=== PATIENT | female | born 1995 | race Caucasian/White ===

== ENCOUNTER 2017-05-16 23:10 | Observation (INO) | payer SELFPAY ==
[2015-09-26 19:05] VITALS: BMI 20.5
[2017-05-16 23:17] VITALS: BP 103/74; PULSE 81; RESP 16; TEMP 97.7; O2SAT 100
[2017-05-17] MEDS ORDERED: Iohexol 240 (50 ml) PO STA (00:03)
[2017-05-17] MEDS ORDERED: Sodium Chloride 0.9% 1,000 ML IV STA (00:04)
--- NOTE | 2017-05-17 00:07 | ED PDOC ---
"HPI: Abdomen Time Seen by Provider: 05/17/17 00:05 Chief Complaint (Nursing): Abdominal Pain Chief Complaint (Provider): abdominal pain History Per: Patient (21 y/o female here h/o UC here with rlq x 3 days. Notes worsening symptoms with coughing. Denies any fevers/chills/dysuria/vomiting/ diarrhea/hematochezia.) Past Medical History Reviewed: Historical Data, Nursing Documentation, Vital Signs Vital Signs: Last Vital Signs Temp 97.7 F 05/16/17 23:16 Pulse 81 05/16/17 23:16 Resp 16 05/16/17 23:16 BP 103/74 05/16/17 23:16 Pulse Ox 100 05/17/17 05:28 - Medical History PMH: Anemia, Anxiety Denies: Chronic Kidney Disease - Family History Family History: States: Unknown Family Hx - Immunization History Hx Tetanus Toxoid Vaccination: No Hx Influenza Vaccination: No Hx Pneumococcal Vaccination: No - Home Medications Home Medications: Ambulatory Orders Medication Instructions Recorded Albuterol HFA [Ventolin HFA 90 1 puff IH BID PRN #1 unit 06/02/16 mcg/actuation (8 g)] Fexofenadine/Pseudoephedrine 1 each PO BID PRN #12 tab.er.12h 06/02/16 [Carmelita-D 12 Hour Tablet] Folic Acid [Folic Acid] 10 mg PO DAILY 06/02/16 Ciprofloxacin HCl [Cipro] 500 mg PO BID #14 tablet 05/17/17 Docusate Sodium [Colace] 100 mg PO Q12 PRN #20 capsule 05/17/17 Naproxen [Naprosyn Tab] 375 mg PO Q8 PRN #21 tab 05/17/17 Phenazopyridine HCl [Pyridium] 100 mg PO BID PRN #6 tablet 05/17/17 - Allergies Allergies/Adverse Reactions: Allergies Allergy/AdvReac Type Severity Reaction Status Date / Time No Known Allergies Allergy Verified 06/02/16 11:29 Review of Systems ROS Statement: Except As Marked, All Systems Reviewed And Found Negative Gastrointestinal: Positive for: Abdominal Pain Physical Exam - Reviewed Nursing Documentation Reviewed: Yes Vital Signs Reviewed: Yes - Physical Exam Appears: Positive for: Well, Non-toxic, No Acute Distress Head Exam: Positive for: ATRAUMATIC, NORMAL INSPECTION, NORMOCEPHALIC Skin: Positive for: Normal Color, Warm, DRY Eye Exam: Positive for: EOMI, Normal appearance, PERRL ENT: Positive for: Normal ENT Inspection Neck: Positive for: Normal, Painless ROM Cardiovascular/Chest: Positive for: Regular Rate, Rhythm Respiratory: Positive for: CNT, Normal Breath Sounds Gastrointestinal/Abdominal: Positive for: Normal Exam, Bowel Sounds, Soft, Tenderness (right lower quadrant lateral to umbilicus.) Back: Positive for: Normal Inspection Extremity: Positive for: Normal ROM Neurologic/Psych: Positive for: Alert, Oriented - Laboratory Results Result Diagrams: 05/17/17 00:50 05/17/17 00:50 - ECG O2 Sat by Pulse Oximetry: 100 ED OBSERVATION Date of observation admission: 05/17/17 Time of observation admission: 00:15 - Observation admission statement Patient is being placed in observation because:: ABDOMINAL PAIN/ EVALUATION AND DIAGNOSIS OF ABDOMINAL PAIN - Goals of Observation Goals of observation are:: EVALUATE FOR APPENDICIITS - Progress Note Progress Note: 05/17/17 00:33 MOPRHINE 1 MG IV X 1 DOSE ZOFRAN 4 MG I VX [address] ABD/PELVIS ROCEPHIN 1 GM IV X 1 DOSE MORPHINE 1 MG IV X 2ND DOSE 05/17/17 05:27 CT ABD/PELVIS FINDINGS: Lower thorax: There is bibasilar atelectasis. Minimal pericardial effusion. ABDOMEN: Liver: Unremarkable. Gallbladder and bile ducts: Partially contracted gallbladder with mild intrahepatic biliary ductal prominence unchanged from prior examination. Pancreas: Unremarkable. No mass. No ductal dilation. Spleen: Unremarkable. No splenomegaly. Adrenals: Unremarkable. No mass. Kidneys and ureters: Unremarkable. No solid mass. No hydronephrosis. Stomach and bowel: Large amount of stool in the colon. Nonspecific colonic wall thickening. Correlation with patient's clinical history of constipation versus stool related colitis is recommended. Appendix: Normal appendix. PELVIS: ALFREDO PEREZ | Preliminary Radiology Report SHUTTLELESS [employer]AVER (QA) DISCREPANCY? If there is a discrepancy between the preliminary and final interpretation, please notify [facility] via [email or web address]. If you do not have access to our QA portal, call our QA team at [phone] CONFIDENTIALITY STATEMENT This report is intended only for the use of the referring physician, and only in accordance with law, If you received this in error, call [phone] Page 2 of 2 Bladder: Partially distended bladder with bladder wall thickening. Correlation with urinalysis is recommended only if clinical cystitis is suspected. Reproductive: Retroverted uterus. ABDOMEN and PELVIS: Intraperitoneal space: Unremarkable. No free air. No significant fluid collection. Bones/joints: No acute fracture. No dislocation. Mild left-sided scoliosis. Soft tissues: Umbilical body piercing ring. Vasculature: Unremarkable. No abdominal aortic aneurysm. Lymph nodes: Multiple subcentimeter mesenteric and ileocolic lymph nodes. Findings are nonspecific but may represent mesenteric adenitis. IMPRESSION: 1. Large amount of stool in the colon. Nonspecific colonic wall thickening. Correlation with patient's clinical history of constipation versus stool related colitis is recommended. Thank you for allowing us to participate in the care of your patient. Disposition - Clinical Impression Clinical Impression: Pyelonephritis, Constipation - Patient ED Disposition Is Patient to be Admitted: No - Disposition Disposition: Routine/Home Disposition Time: 05:28 Condition: FAIR"
[2017-05-17 01:23] LABS: BASO % 0.7 % (0.0-2.0); EOS # 0.7 K/uL (0.0-0.7); EOS % 10.4 % (0.0-4.0); HEMATOCRIT 35.8 % (34.0-47.0); LYMPH % 31.8 % (20.0-40.0); MEAN CELL VOLUME 78.1 fl (81.0-99.0); MEAN PLATELET VOLUME 8.2 fl (7.2-11.7); MONO # 0.7 K/uL (0.0-0.8); MONO % 10.8 % (0.0-10.0); NEUT % 46.3 % (50.0-75.0); RED CELL DISTRIBUTION WIDTH 16.8 % (11.5-14.5); WHITE BLOOD COUNT 6.4 K/uL (4.8-10.8)
[2017-05-17] MEDS ORDERED: Iohexol 240 (50 ml) ONE (01:24)
[2017-05-17 01:31] LABS: ALB/GLOB RATIO 1.2 (1.0-2.1); ALKALINE PHOSPHATASE 110 U/L (38-126); ALT/SGPT 28 U/L (9-52); AST/SGOT 27 U/L (14-36); BILIRUBIN,TOTAL 0.3 mg/dl (0.2-1.3); BLOOD UREA NITROGEN 14 mg/dl (7-17); CALCIUM 9.5 mg/dL (8.4-10.2); CARBON DIOXIDE 22 mmol/L (22-30); CHLORIDE 106 mmol/L (98-107); GFR AFRICAN-AMERICAN > 60; GLUCOSE,RANDOM 108 mg/dL (65-105); LIPASE 108 U/L (23-300); POTASSIUM 3.7 MMOL/L (3.6-5.0); SODIUM 142 mmol/l (132-148); TOTAL PROTEIN 7.6 G/DL (6.3-8.2)
[2017-05-17 02:12] LABS: RBC URINE 11 /hpf (0-3); URINE BACTERIA OCC (<OCC); URINE BILIRUBIN NEGATIVE (NEGATIVE); URINE BLOOD SMALL (NEGATIVE); URINE COLOR YELLOW (YELLOW); URINE GLUCOSE (UA) NEG (Normal); URINE KETONE NEGATIVE (NEGATIVE); URINE LEUKOCYTE ESTERASE NEG Leu/uL (Negative); URINE PROTEIN NEGATIVE (NEGATIVE); URINE UROBILINOGEN 0.2-1.0 mg/dL (0.2-1.0); WBC CLUMPS MANY /hpf; WBC URINE 22 /hpf (0-5)
[2017-05-17] MEDS ORDERED: Sodium Chloride 0.9% 50 ML IV ONE (03:26)
[2017-05-17] MEDS ORDERED: Iohexol 300 100 ML IJ ONE (03:26)
[2017-05-17] MEDS ORDERED: cefTRIAXone (Rocephin) 1 gm Inj IVPB ONE (04:08)
--- NOTE | 2017-05-17 10:24 | CT ---
PROCEDURE: CT Abdomen and Pelvis with contrast HISTORY: abd pain rlq COMPARISON: Comparison is made to the previous study dated 05/17/2012 TECHNIQUE: Contrast dose: 85 cc of Omnipaque 300. Axial and reformatted coronal and sagittal CT images of the abdomen and pelvis were obtained after IV and oral contrast administration. Radiation dose: Total exam DLP = 258.84 mGy-cm. This CT exam was performed using one or more of the following dose reduction techniques: Automated exposure control, adjustment of the mA and/or kV according to patient size, and/or use of iterative reconstruction technique. FINDINGS: LOWER THORAX: Unremarkable. LIVER: Unremarkable. No gross lesion or ductal dilatation. GALLBLADDER AND BILE DUCTS: Unremarkable. PANCREAS: Unremarkable. No gross lesion or ductal dilatation. SPLEEN: Unremarkable. ADRENALS: Unremarkable. No mass. KIDNEYS AND URETERS: Unremarkable. No hydronephrosis. No solid mass. VASCULATURE: Unremarkable. No aortic aneurysm. BOWEL: [id number] constipation. Mild diffuse small bowel wall thickening. No evidence of bowel obstruction. Mild distal gastric wall thickening. APPENDIX: Normal appendix. PERITONEUM: Unremarkable. No free fluid. No free air. LYMPH NODES: Unremarkable. No enlarged lymph nodes. BLADDER: Unremarkable. REPRODUCTIVE: The adnexa are prominent in size bilaterally. The uterus is slightly prominent in size. BONES: No acute fracture. OTHER FINDINGS: None. IMPRESSION: No evidence of appendicitis. [id number] constipation. Mild small bowel wall thickening. Prominent size/ mildly enlarged adnexa. Otherwise no evidence of acute pathology in the abdomen and pelvis. Preliminary report was submitted by [facility].
== END 2017-05-17 05:28 | disposition home or self-care (01) ==
LOC: H.ER 23:10 → H.EROBSV 05-17 00:15
PROVIDERS: ADMIT Emergency Medicine; ATTEND Emergency Medicine
DX: N12 Tubulo-interstitial nephritis, not specified as acute or chronic (principal); K59.00 Constipation, unspecified; D64.9 Anemia, unspecified; F41.9 Anxiety disorder, unspecified
CPT/HCPCS: 36415; 74177; 80053; 81003; 83690; 85025; 87086; 96361; 96374; 96375; 96376; 99283; G0378; J0696; J2270; J2405; J7040; Q9966; Q9967

== ENCOUNTER 2018-04-08 12:13 | Emergency (ER) | payer MEDICAID, OTHER ==
[2015-09-26 19:05] VITALS: BMI 20.5
[2018-04-08] MEDS ORDERED: Albuterol-Ipratrop 3 mg / 0.5 (3 ml) UD IH STA ×2 (12:39→15:22)
--- NOTE | 2018-04-08 12:42 | ED PDOC ---
HPI: CCC, URI, Sore Throat Time Seen by Provider: 04/08/18 12:16 Chief Complaint (Nursing): Cough, Cold, Congestion History Per: Patient Onset/Duration Of Symptoms: Days (3) Current Symptoms Are (Timing): Still Present Location Of Pain: Headache Associated Symptoms: Sore Throat, Cough, Sputum. denies: Vomiting, Diarrhea Severity: Moderate Pain Scale Rating Of: 3 Additional Complaint(s): Cough productive white green sputum assoc with wheezing and SOB. Denies fever. Decreased apatite. No vomiting or diarrhea. denies bloody stool. Past Medical History Vital Signs: Last Vital Signs Temp 98.9 F 04/08/18 14:03 Pulse 107 H 04/08/18 14:03 Resp 18 04/08/18 14:03 BP 102/68 04/08/18 14:03 Pulse Ox 98 04/08/18 14:03 - Medical History PMH: Anemia, Anxiety Denies: Chronic Kidney Disease Other PMH: Ulcerative colitis - Family History Family History: States: Unknown Family Hx - Immunization History Hx Tetanus Toxoid Vaccination: No Hx Influenza Vaccination: No Hx Pneumococcal Vaccination: No - Home Medications Home Medications: Ambulatory Orders Medication Instructions Recorded Albuterol HFA [Ventolin HFA 90 1 puff IH BID PRN #1 unit 06/02/16 mcg/actuation (8 g)] Fexofenadine/Pseudoephedrine 1 each PO BID PRN #12 tab.er.12h 06/02/16 [Carmelita-D 12 Hour Tablet] Folic Acid [Folic Acid] 10 mg PO DAILY 06/02/16 Ciprofloxacin HCl [Cipro] 500 mg PO BID #14 tablet 05/17/17 Docusate Sodium [Colace] 100 mg PO Q12 PRN #20 capsule 05/17/17 Naproxen [Naprosyn Tab] 375 mg PO Q8 PRN #21 tab 05/17/17 Phenazopyridine HCl [Pyridium] 100 mg PO BID PRN #6 tablet 05/17/17 Albuterol HFA [Ventolin HFA 90 2 puff IH Q4H #1 puff 04/08/18 mcg/actuation (8 g)] Azithromycin [Zithromax] 250 mg PO DAILY #6 tab 04/08/18 - Allergies Allergies/Adverse Reactions: Allergies Allergy/AdvReac Type Severity Reaction Status Date / Time No Known Allergies Allergy Verified 04/08/18 12:29 Review of Systems ROS Statement: Except As Marked, All Systems Reviewed And Found Negative Respiratory: Positive for: Cough, Sputum, Wheezing Physical Exam - Reviewed Nursing Documentation Reviewed: Yes Vital Signs Reviewed: Yes - Physical Exam Appears: Positive for: Non-toxic, No Acute Distress Head Exam: Positive for: ATRAUMATIC, NORMAL INSPECTION, NORMOCEPHALIC Skin: Positive for: Normal Color, Warm, DRY Eye Exam: Positive for: EOMI, Normal appearance, PERRL ENT: Positive for: Normal ENT Inspection Neck: Positive for: Normal, Painless ROM Cardiovascular/Chest: Positive for: Regular Rate, Rhythm Respiratory: Positive for: Rhonchi, Wheezing. Negative for: Respiratory Distress Gastrointestinal/Abdominal: Positive for: Soft. Negative for: Tenderness Back: Positive for: Normal Inspection Extremity: Positive for: Normal ROM Neurologic/Psych: Positive for: Alert, Oriented - Laboratory Results Result Diagrams: 04/08/18 14:40 - ECG O2 Sat by Pulse Oximetry: 99 Disposition - Clinical Impression Clinical Impression: Pneumonia - Patient ED Disposition Is Patient to be Admitted: No Counseled Patient/Family Regarding: Studies Performed, Diagnosis, Need For Followup, Rx Given - Disposition Referrals: [facility] [Outside] Disposition: Routine/Home Disposition Time: 15:21 Condition: FAIR Prescriptions: Albuterol HFA [Ventolin HFA 90 mcg/actuation (8 g)] 2 puff IH Q4H #1 puff Azithromycin [Zithromax] 250 mg PO DAILY #6 tab Instructions: Pneumonia in Adults Forms: [facility] (Hungarian)
[2018-04-08] MEDS ORDERED: Albuterol-Ipratrop 3 mg / 0.5 (3 ml) UD ONE ×2 (12:51→15:29)
--- NOTE | 2018-04-08 13:53 | RAD ---
Date of service: 04/08/2018 HISTORY: cough COMPARISON: 06/02/2016 TECHNIQUE: Chest PA and lateral FINDINGS: LUNGS: There is interval vague opacity compatible with a small patchy interval infiltrate in the right mid lung zone. There is also interval increased branching bandlike opacities right infrahilar region subsegmental atelectasis and or subsegmental infiltrate here region right middle lobe compatible with this appearance there is also equivocal opacity projecting over the right upper lung zone this also however projects over the anterior right 2nd rib and the right posterior 5th rib. Summation shadows versus another patchy small infiltrate here is a consideration. PLEURA: No significant pleural effusion identified. No pneumothorax apparent. CARDIOVASCULAR: Normal. OSSEOUS STRUCTURES: No significant abnormalities. VISUALIZED UPPER ABDOMEN: Normal. OTHER FINDINGS: Bilateral nipple appears pieces of jewelry present as before. IMPRESSION: Interval faint small patchy infiltrates right lung - as detailed above . Clinical follow-up recommended.
[2018-04-08 15:00] LABS: BASO # 0.1 K/uL (0.0-0.2); BASO % 0.7 % (0.0-2.0); EOS # 0.5 K/uL (0.0-0.7); EOS % 5.9 % (0.0-4.0); HEMOGLOBIN 13.6 g/dL (12.0-16.0); LYMPH # 1.5 K/uL (1.0-4.3); LYMPH % 17.3 % (20.0-40.0); MEAN CORPUSCULAR HEMOGLOBIN 26.8 pg (27.0-31.0); MEAN CORPUSCULAR HGB CONC 33.5 g/dL (33.0-37.0); MEAN PLATELET VOLUME 8.3 fl (7.2-11.7); MONO # 0.7 K/uL (0.0-0.8); MONO % 8.4 % (0.0-10.0); NEUT # 5.9 K/uL (1.8-7.0); NEUT % 67.7 % (50.0-75.0); RBC 5.08 Mil/uL (3.80-5.20); RED CELL DISTRIBUTION WIDTH 15.5 % (11.5-14.5); WHITE BLOOD COUNT 8.7 K/uL (4.8-10.8)
[2018-04-08 15:22] VITALS: O2SAT 99
[2018-04-08 15:55] LABS: ALB/GLOB RATIO 1.1 (1.0-2.1); ALBUMIN 4.6 g/dL (3.5-5.0); ALT/SGPT 21 U/L (9-52); AST/SGOT 29 U/L (14-36); BLOOD UREA NITROGEN 9 mg/dl (7-17); CALCIUM 9.6 mg/dL (8.4-10.2); GFR NON-AFRICAN AMERICAN > 60
[2018-04-08 16:17] VITALS: BP 109/60; PULSE 86; RESP 16; TEMP 99.1
== END 2018-04-08 16:27 | disposition home or self-care (01) ==
LOC: H.ER 12:13
DX: J18.9 Pneumonia, unspecified organism (principal); F41.9 Anxiety disorder, unspecified

== ENCOUNTER 2018-12-07 11:34 | Emergency (ER) | payer MEDICAID ==
[2015-09-26 19:05] VITALS: BMI 20.5
[2018-12-07 11:42] VITALS: O2SAT 100
[2018-12-07] MEDS ORDERED: Tetanus Immune Globulin 250 Units Inj IM STA (12:03)
[2018-12-07] MEDS ORDERED: Tdap Vaccine 0.5 ml Vial (10-64 yrs) IM ONE ×2 (12:08→12:27)
[2018-12-07] MEDS ORDERED: Amoxicillin-Clav 875-125 mg Tab PO STA (12:25)
[2018-12-07] MEDS ORDERED: Amoxicillin-Clav 875-125 mg Tab PO ONE (12:38)
--- NOTE | 2018-12-07 13:07 | ED PDOC ---
HPI: Skin/Bite Injury Time Seen by Provider: 12/07/18 12:04 Chief Complaint (Nursing): Bite Chief Complaint (Provider): dog bite History Per: Patient History/Exam Limitations: no limitations Onset/Duration Of Symptoms: Hrs Current Symptoms Are (Timing): Still Present Location Of Injury: Left: Leg (x2 doses ) Quality Of Symptoms: Painful, Swollen Severity: Mild Pain Scale Rating Of: 5 Additional History Per: Patient Additional Complaint(s): 23 YEAR OLD FEMALE PRESENTS TO THE ED AFTER BEIN BIT BY A DOG [place] [employer]. PATIENTS SHE WAS ON THE PHONE WITH HER MOTHER BEING "SILLY" AND SHE STATES THAT MIGHT OF STARTLED THE DOG AND BIT HER THROUGH YOGA PANTS. SHE STATES THE BAR PORTER SAID THE DOG IS A HOUSE DOG AND USUALLY DOES NOT COME OUT THEREFORE IT DID NOT HAVE ANY OF THE VACCINES. PATIENT STATES SHE DID NOT GET THE BAR PORTER'S OR DOG INFORMATION. TETANUS STATUS IS UNKNOWN. - Animal Bite Description Of The Attack: Unprovoked Attack Description Of The Animal: Family Pet Animal Appears: Unknown Animal's Immunization Status: Not Recently Immunized Past Medical History Reviewed: Historical Data, Nursing Documentation, Vital Signs Vital Signs: Last Vital Signs Temp 98.3 F 12/07/18 11:39 Pulse 90 12/07/18 11:39 Resp 17 12/07/18 11:39 BP 106/56 L 12/07/18 12:22 Pulse Ox 100 12/07/18 11:39 QUIN Report Viewed: No - Medical History PMH: Anemia, Anxiety Denies: Chronic Kidney Disease - Family History Family History: States: Unknown Family Hx - Social History Alcohol: None Drugs: Denies - Immunization History Hx Tetanus Toxoid Vaccination: No Hx Influenza Vaccination: No Hx Pneumococcal Vaccination: No - Home Medications Home Medications: Ambulatory Orders Medication Instructions Recorded Albuterol HFA [Ventolin HFA 90 1 puff IH BID PRN #1 unit 06/02/16 mcg/actuation (8 g)] Fexofenadine/Pseudoephedrine 1 each PO BID PRN #12 tab.er.12h 06/02/16 [Carmelita-D 12 Hour Tablet] Folic Acid 10 mg PO DAILY 06/02/16 Ciprofloxacin HCl [Cipro] 500 mg PO BID #14 tablet 05/17/17 Docusate Sodium [Colace] 100 mg PO Q12 PRN #20 capsule 05/17/17 Naproxen [Naprosyn Tab] 375 mg PO Q8 PRN #21 tab 05/17/17 Phenazopyridine HCl [Pyridium] 100 mg PO BID PRN #6 tablet 05/17/17 Albuterol HFA [Ventolin HFA 90 2 puff IH Q4H #1 puff 04/08/18 mcg/actuation (8 g)] Azithromycin [Zithromax] 250 mg PO DAILY #6 tab 04/08/18 Amoxicillin/Clavulanate [Augmentin 1 tab PO Q12H #13 tab 12/07/18 875 MG-125 MG] - Allergies Allergies/Adverse Reactions: Allergies Allergy/AdvReac Type Severity Reaction Status Date / Time No Known Allergies Allergy Verified 04/08/18 12:29 Review of Systems ROS Statement: Except As Marked, All Systems Reviewed And Found Negative Constitutional: Negative for: Fever, Chills, Sweats, Weakness, Malaise Eyes: Negative for: Pain, Vision Change, Conjunctivae Inflammation, Eyelid Inflammation, Redness ENT: Negative for: Ear Pain, Ear Discharge, Nose Pain, Nose Discharge, Nose Congestion, Mouth Pain, Mouth Swelling Skin: Positive for: Bruising, Other (DOG BITES TO LEFT UPPER THIGH ) Physical Exam - Reviewed Nursing Documentation Reviewed: Yes Vital Signs Reviewed: Yes - Physical Exam Appears: Positive for: Well, Non-toxic, No Acute Distress Head Exam: Positive for: ATRAUMATIC, NORMAL INSPECTION, NORMOCEPHALIC Skin: Positive for: Normal Color, Warm (LEFT THIGH BITES: 1.0 CM TENSILE LACERATION X1, 3-4 FINGER BREATHS BELOW FIRST WOUND: 0.5CM IN LENGTH TENSILE WOUND. ECCHYMOSIS NEAR THE LEFT BUTTOCK NOTED, SKIN INTACT IN THIS AREA. ), Dry Eye Exam: Positive for: EOMI, Normal appearance, PERRL ENT: Positive for: Normal ENT Inspection Neck: Positive for: Normal, Painless ROM Cardiovascular/Chest: Positive for: Regular Rate, Rhythm Respiratory: Positive for: CNT, Normal Breath Sounds Gastrointestinal/Abdominal: Positive for: Normal Exam, Soft Back: Positive for: Normal Inspection Extremity: Positive for: Normal ROM Neurological/Psych: Positive for: Awake, Alert, Normal Tone, Oriented - Laboratory Results Urine POC: Negative - ECG O2 Sat by Pulse Oximetry: 100 Medical Decision Making Medical Decision Making: WOUND CARE/REPAIR TETANUS VACCINE RABIES IMMUNOGOBULIN/VACCINE AUGMENTIN FIRST DOSE UPREG 13:00: PATIENT TOLERATED WOUND CARE WELL. WOUNDS CLOSED TO STRII STRIPS TO ALLOW FOR SECONDARY INTENTION HEALING. PATIENT EDUCATED ON MANAGEMENT AND CARE OF WOUNDS AT HOME. 2.8ML OF RABIES IMMUNOGLOBULIN INJECTED TO SITES BY CLASS B DRIVER AFTER APPLYING BETADINE AROUND WOUND AND LEFT TO DRY. 13::19: PATIENT STABLE FOR D/C. PATIENT TO RETURN ON 12/10 FOR WOUND CHECK AND SECOND RABIES VACCINE. PATIENT STATES UNDERSTANDING AND AGREES WITH PLAN. RX GIVEN FOR AUGMENTIN AND MOTRIN. PATIENT GIVEN RETURN TO ED PRECAUTIONS. Disposition - Clinical Impression Clinical Impression: Dog bite - Patient ED Disposition Is Patient to be Admitted: No Counseled Patient/Family Regarding: Diagnosis, Need For Followup, Rx Given - Disposition Disposition: Routine/Home Disposition Time: 13:15 Condition: GOOD Prescriptions: Amoxicillin/Clavulanate [Augmentin 875 MG-125 MG] 1 tab PO Q12H #13 tab Instructions: Animal Bites (DC), Wound Care (DC) Print Language: SERBIAN - POA Present On Arrival: None
[2018-12-07 13:36] VITALS: BP 112/60; PULSE 84; RESP 18; TEMP 98.1
== END 2018-12-07 13:34 | disposition home or self-care (01) ==
LOC: H.ER 11:34
DX: S81.852A Open bite, left lower leg, initial encounter (principal); W54.0XXA Bitten by dog, initial encounter; Z23 Encounter for immunization

== ENCOUNTER 2018-12-10 20:17 | Emergency (ER) | payer MEDICAID ==
[2015-09-26 19:05] VITALS: BMI 20.5
[2018-12-10 21:05] VITALS: BP 106/68; PULSE 68; RESP 16; TEMP 98.4; O2SAT 98
--- NOTE | 2018-12-10 21:08 | ED PDOC ---
HPI: General Adult Time Seen by Provider: 12/10/18 21:05 Chief Complaint (Nursing): Rabies Vaccine Series Past Medical History Vital Signs: Last Vital Signs Temp 98.4 F 12/10/18 21:04 Pulse 68 12/10/18 21:04 Resp 16 12/10/18 21:04 BP 106/68 12/10/18 21:04 Pulse Ox 98 12/10/18 21:04 - Medical History PMH: Anemia, Anxiety Denies: Chronic Kidney Disease - Family History Family History: States: Unknown Family Hx - Immunization History Hx Tetanus Toxoid Vaccination: No Hx Influenza Vaccination: No Hx Pneumococcal Vaccination: No - Home Medications Home Medications: Ambulatory Orders Medication Instructions Recorded Albuterol HFA [Ventolin HFA 90 1 puff IH BID PRN #1 unit 06/02/16 mcg/actuation (8 g)] Fexofenadine/Pseudoephedrine 1 each PO BID PRN #12 tab.er.12h 06/02/16 [Carmelita-D 12 Hour Tablet] Folic Acid 10 mg PO DAILY 06/02/16 Ciprofloxacin HCl [Cipro] 500 mg PO BID #14 tablet 05/17/17 Docusate Sodium [Colace] 100 mg PO Q12 PRN #20 capsule 05/17/17 Naproxen [Naprosyn Tab] 375 mg PO Q8 PRN #21 tab 05/17/17 Phenazopyridine HCl [Pyridium] 100 mg PO BID PRN #6 tablet 05/17/17 Albuterol HFA [Ventolin HFA 90 2 puff IH Q4H #1 puff 04/08/18 mcg/actuation (8 g)] Azithromycin [Zithromax] 250 mg PO DAILY #6 tab 04/08/18 Amoxicillin/Clavulanate [Augmentin 1 tab PO Q12H #13 tab 12/07/18 875 MG-125 MG] - Allergies Allergies/Adverse Reactions: Allergies Allergy/AdvReac Type Severity Reaction Status Date / Time No Known Allergies Allergy Verified 12/10/18 21:03 - ECG O2 Sat by Pulse Oximetry: 98 Disposition - Disposition
--- NOTE | 2018-12-10 21:10 | ED PDOC ---
HPI: General Adult Time Seen by Provider: 12/10/18 21:05 Chief Complaint (Nursing): Rabies Vaccine Series Chief Complaint (Provider): Rabies Vaccine Series History Per: Patient History/Exam Limitations: no limitations Onset/Duration Of Symptoms: Days (x3) Current Symptoms Are (Timing): Better Additional Complaint(s): 23 year old female presents to the ED for her second Rabies vaccine. Patient was seen here initially on 12/07 after being bit by an unvaccinated dog to her left upper thigh. She reports compliance with her antibiotics, and denies any fever, chills, or signs of infection at the wound site. PMD: none provided Past Medical History Reviewed: Historical Data, Nursing Documentation, Vital Signs Vital Signs: Last Vital Signs Temp 98.4 F 12/10/18 21:04 Pulse 68 12/10/18 21:04 Resp 16 12/10/18 21:04 BP 106/68 12/10/18 21:04 Pulse Ox 98 12/10/18 21:04 - Medical History PMH: Anemia, Anxiety Denies: Chronic Kidney Disease - Surgical History Surgical History: No Surg Hx - Family History Family History: States: Unknown Family Hx - Social History Current smoker - smoking cessation education provided: No - Immunization History Hx Tetanus Toxoid Vaccination: No Hx Influenza Vaccination: No Hx Pneumococcal Vaccination: No - Home Medications Home Medications: Ambulatory Orders Medication Instructions Recorded Albuterol HFA [Ventolin HFA 90 1 puff IH BID PRN #1 unit 06/02/16 mcg/actuation (8 g)] Fexofenadine/Pseudoephedrine 1 each PO BID PRN #12 tab.er.12h 06/02/16 [Carmelita-D 12 Hour Tablet] Folic Acid 10 mg PO DAILY 06/02/16 Ciprofloxacin HCl [Cipro] 500 mg PO BID #14 tablet 05/17/17 Docusate Sodium [Colace] 100 mg PO Q12 PRN #20 capsule 05/17/17 Naproxen [Naprosyn Tab] 375 mg PO Q8 PRN #21 tab 05/17/17 Phenazopyridine HCl [Pyridium] 100 mg PO BID PRN #6 tablet 05/17/17 Albuterol HFA [Ventolin HFA 90 2 puff IH Q4H #1 puff 04/08/18 mcg/actuation (8 g)] Azithromycin [Zithromax] 250 mg PO DAILY #6 tab 04/08/18 Amoxicillin/Clavulanate [Augmentin 1 tab PO Q12H #13 tab 12/07/18 875 MG-125 MG] - Allergies Allergies/Adverse Reactions: Allergies Allergy/AdvReac Type Severity Reaction Status Date / Time No Known Allergies Allergy Verified 12/10/18 21:03 Review of Systems ROS Statement: Except As Marked, All Systems Reviewed And Found Negative Constitutional: Negative for: Fever, Chills Skin: Negative for: Other (signs of infection to healing wound on left upper thigh) Physical Exam - Reviewed Nursing Documentation Reviewed: Yes Vital Signs Reviewed: Yes - Physical Exam Appears: Positive for: No Acute Distress Cardiovascular/Chest: Positive for: Regular Rate, Rhythm Respiratory: Positive for: Normal Breath Sounds. Negative for: Respiratory Distress Extremity: Positive for: Normal ROM (bilateral LE), Other (well healing scabbed wounds with some ecchymosis to top most wound, but otherwise no drainge, signs of infection, or surrounding erythema) Neurological/Psych: Positive for: Awake, Alert, Oriented (x3). Negative for: Motor/Sensory Deficits - ECG O2 Sat by Pulse Oximetry: 98 (RA) Pulse Ox Interpretation: Normal Medical Decision Making Medical Decision Making: Time: 2109 Initial Impression: Rabies series Initial Plan: --Second rabies vaccine ordered. Patient educated on return parameters and advised to return on 12/13 for the third shot. Instructed to continue antibiotics. All questions answered and patient verbalized agreement and understanding. Scribe Attestation: Documented by Lisa Ceron, acting as a scribe for Michelle Hall APN. Provider Scribe Attestation: All medical record entries made by the Scribe were at my direction and personally dictated by me. I have reviewed the chart and agree that the record accurately reflects my personal performance of the history, physical exam, medical decision making, and the department course for this patient. I have also personally directed, reviewed, and agree with the discharge instructions and disposition. Disposition - Clinical Impression Clinical Impression: Dog bite - Patient ED Disposition Is Patient to be Admitted: No Counseled Patient/Family Regarding: Diagnosis - Disposition Disposition: Routine/Home Disposition Time: 21:15 Condition: GOOD Instructions: Animal Bites (DC) Print Language: TURKMEN - POA Present On Arrival: None
== END 2018-12-10 21:36 | disposition home or self-care (01) ==
LOC: H.ER 20:17
DX: Z29.14 Encounter for prophylactic rabies immune globulin (principal); F41.9 Anxiety disorder, unspecified

== ENCOUNTER 2018-12-14 18:10 | Emergency (ER) | payer MEDICAID ==
[2015-09-26 19:05] VITALS: BMI 20.5
[2018-12-14 18:52] VITALS: BP 113/68; PULSE 78; RESP 18; TEMP 97.5; O2SAT 100
--- NOTE | 2018-12-14 19:17 | ED PDOC ---
HPI: General Adult Time Seen by Provider: 12/14/18 18:45 Chief Complaint (Nursing): Rabies Vaccine Series Chief Complaint (Provider): Rabies Vaccine Series History Per: Patient History/Exam Limitations: no limitations Additional Complaint(s): 23 y/o female presents to the ED due to 3rd shot of rabies series. Patient states she was bitten on left thigh by a dog 1 week ago while [address] in [address] acting silly which may have scared the dog. Patient reports she did not receive any stitches and area has become mildly bruise. Patient denies pus drainage, redness, fever, chills, or any reaction to the rabies shots. PMD: none provided Past Medical History Reviewed: Historical Data, Nursing Documentation, Vital Signs Vital Signs: Last Vital Signs Temp 97.5 F L 12/14/18 18:49 Pulse 78 12/14/18 18:49 Resp 18 12/14/18 18:49 BP 113/68 12/14/18 18:49 Pulse Ox 100 12/14/18 18:49 - Medical History PMH: Anemia, Anxiety, Gastritis Denies: Chronic Kidney Disease - Family History Family History: States: Unknown Family Hx - Immunization History Hx Tetanus Toxoid Vaccination: No Hx Influenza Vaccination: No Hx Pneumococcal Vaccination: No - Home Medications Home Medications: Ambulatory Orders Medication Instructions Recorded Albuterol HFA [Ventolin HFA 90 1 puff IH BID PRN #1 unit 06/02/16 mcg/actuation (8 g)] Fexofenadine/Pseudoephedrine 1 each PO BID PRN #12 tab.er.12h 06/02/16 [Carmelita-D 12 Hour Tablet] Folic Acid 10 mg PO DAILY 06/02/16 Ciprofloxacin HCl [Cipro] 500 mg PO BID #14 tablet 05/17/17 Docusate Sodium [Colace] 100 mg PO Q12 PRN #20 capsule 05/17/17 Naproxen [Naprosyn Tab] 375 mg PO Q8 PRN #21 tab 05/17/17 Phenazopyridine HCl [Pyridium] 100 mg PO BID PRN #6 tablet 05/17/17 Albuterol HFA [Ventolin HFA 90 2 puff IH Q4H #1 puff 04/08/18 mcg/actuation (8 g)] Azithromycin [Zithromax] 250 mg PO DAILY #6 tab 04/08/18 Amoxicillin/Clavulanate [Augmentin 1 tab PO Q12H #13 tab 12/07/18 875 MG-125 MG] - Allergies Allergies/Adverse Reactions: Allergies Allergy/AdvReac Type Severity Reaction Status Date / Time No Known Allergies Allergy Verified 12/10/18 21:03 Review of Systems ROS Statement: Except As Marked, All Systems Reviewed And Found Negative Constitutional: Negative for: Fever, Chills Physical Exam - Reviewed Nursing Documentation Reviewed: Yes Vital Signs Reviewed: Yes - Physical Exam Extremity: Positive for: Other (2 healing wounds on anterior left thigh. No errythema, no drainage. ). Negative for: Swelling Neurological/Psych: Positive for: Awake, Alert, Oriented (x3) - ECG O2 Sat by Pulse Oximetry: 100 Medical Decision Making Medical Decision Making: Time:1856 Initial Plan: -Rabies vaccination 1899 Patient to return for last shot in series on 12/21/18. Scribe Attestation: Documented by Tessie Childs, acting as a scribe for Radha Blanco. Provider Scribe Attestation: All medical record entries made by the Scribe were at my direction and personally dictated by me. I have reviewed the chart and agree that the record accurately reflects my personal performance of the history, physical exam, medical decision making, and the department course for this patient. I have also personally directed, reviewed, and agree with the discharge instructions and disposition. Disposition - Clinical Impression Clinical Impression: Rabies, need for prophylactic vaccination against - Disposition Referrals: [facility] [Outside] Deandre Tom MD [Medical Doctor] - Disposition Time: 19:34 Condition: STABLE Additional Instructions: Return on 12/21/18 for your final shot in rabies series. Return to ER if you develop fevers, redness or pus drainage from wounds. Forms: [facility] (Turkish) Print Language: YAKUT
== END 2018-12-14 19:34 | disposition home or self-care (01) ==
LOC: H.ER 18:10
DX: Z23 Encounter for immunization (principal)